=== PATIENT | female | born 1940 | race Caucasian/White ===

== ENCOUNTER 2020-08-17 13:06 | Inpatient (IN) | payer OTHER, BC ==
[2020-08-17 16:14] LABS: BASO % 0.5 % (0-2.0); HEMATOCRIT 31.8 % (32.4-45.2); HEMOGLOBIN 10.4 GM/dL (10.7-15.3); LYMPH % 8.5 % (8-40); MCH 28.4 pg (25.7-33.7); MCHC 32.7 g/dl (32.0-36.0); MEAN CELL VOLUME 86.9 fl (80-96); MEAN PLT VOLUME 8.5 fl (7.5-11.1); MONO % 3.8 % (3.8-10.2); NEUT % 87.2 % (42.8-82.8); PLATELET COUNT 299 K/MM3 (134-434); RBC 3.66 M/mm3 (3.60-5.2); RDW 14.5 % (11.6-15.6); WHITE BLOOD COUNT 8.6 K/mm3 (4.0-10.0)
[2020-08-17 16:35] LABS: CHLORIDE 107 mmol/L (98-107); POTASSIUM 4.9 mmol/L (3.5-5.1); SODIUM 139 mmol/L (136-145)
[2020-08-17 16:37] LABS: CALCIUM 9.4 mg/dL (8.5-10.1)
[2020-08-17 16:38] LABS: ALBUMIN 3.4 g/dl (3.4-5.0); ANION GAP 6 MMOL/L (8-16); BLOOD UREA NITROGEN 52.7 mg/dL (7-18); CO2 27 mmol/L (21-32); GLUCOSE,RANDOM 154 mg/dL (74-106)
[2020-08-17 16:41] LABS: CREATININE 1.2 mg/dL (0.55-1.3); SGOT/AST 16 U/L (15-37); SGPT/ALT 24 U/L (13-61)
[2020-08-17 16:42] LABS: BILIRUBIN,TOTAL 0.3 mg/dL (0.2-1); TOT PROT 6.8 g/dl (6.4-8.2)
[2020-08-17 16:43] LABS: ALK PHOS 83 U/L (45-117)
[2020-08-17] MEDS ORDERED: SODIUM CHLORIDE 500 ML IV STA (17:06)
[2020-08-17 19:53] LABS: POTASSIUM 4.3 mmol/L (3.5-5.1)
[2020-08-17 19:54] LABS: CALCIUM 9.1 mg/dL (8.5-10.1)
[2020-08-17 19:55] LABS: BLOOD UREA NITROGEN 52.6 mg/dL (7-18)
[2020-08-17 19:58] LABS: CREATININE 1.3 mg/dL (0.55-1.3)
[2020-08-17 21:01] LABS: EPI CELLS >36 /uL (0-25.1); HYALINE CASTS 2 /uL (0-3.1); URINE APPEARANCE CLEAR; URINE BACTERIA 205 /uL (0-1359); URINE BILIRUBIN NEGATIVE (NEGATIVE); URINE COLOR YELLOW; URINE GLUCOSE (UA) NEGATIVE (NEGATIVE); URINE KETONE NEGATIVE (NEGATIVE); URINE LEUK ESTERASE 1+ (NEGATIVE); URINE NITRITE NEGATIVE (NEGATIVE); URINE PROTEIN 2+ (NEGATIVE); URINE RBC 13 /uL (0-23.9); URINE UROBILINOGEN 0.2 mg/dL (0.2-1.0); URINE WBC 44 /uL (0-25.8)
[2020-08-17] MEDS ORDERED: SODIUM CHLORIDE 1,000 ML IV SCH (22:00)
[2020-08-17] MEDS ORDERED: ATORVASTATIN CA 20 MG TABLET (FP) ONE (22:45)
[2020-08-17] MEDS ORDERED: HEPARIN NA (PORCINE) 5,000 UNITS/ML 1ML VIAL ONE (22:45)
[2020-08-17] MEDS: ATORVASTATIN CA 20 MG TABLET (FP) PO SCH (23:02)
[2020-08-17] MEDS: HEPARIN NA (PORCINE) 5,000 UNITS/ML 1ML VIAL SQ SCH (23:02)
[2020-08-18] MEDS ORDERED: MELATONIN 5 MG TABLETS PO ONE (00:25)
[2020-08-18 00:29] VITALS: BMI 34.6
[2020-08-18 07:38] LABS: HEMATOCRIT 24.5 % (32.4-45.2); HEMOGLOBIN 8.3 GM/dL (10.7-15.3); MCH 29.3 pg (25.7-33.7); MCHC 33.7 g/dl (32.0-36.0); MEAN PLT VOLUME 8.2 fl (7.5-11.1); PLATELET COUNT 222 K/MM3 (134-434); RBC 2.82 M/mm3 (3.60-5.2); RDW 14.7 % (11.6-15.6); WHITE BLOOD COUNT 7.5 K/mm3 (4.0-10.0)
[2020-08-18 07:45] LABS: POTASSIUM 3.7 mmol/L (3.5-5.1)
[2020-08-18 08:19] LABS: ALBUMIN 2.8 g/dl (3.4-5.0); BILIRUBIN,TOTAL 0.3 mg/dL (0.2-1); BLOOD UREA NITROGEN 40.2 mg/dL (7-18); CALCIUM 8.5 mg/dL (8.5-10.1); MAGNESIUM 1.9 mg/dL (1.8-2.4); TOT PROT 5.4 g/dl (6.4-8.2)
[2020-08-18] MEDS ORDERED: ASPIRIN COATED 81 MG TABLET.EC PO SCH (10:00)
[2020-08-18] MEDS ORDERED: METOPROLOL TARTRATE 25 MG TABLET (FP) PO SCH (10:00)
[2020-08-18] MEDS ORDERED: VALSARTAN 80 MG TABLET PO SCH (10:00)
[2020-08-18] MEDS ORDERED: PANTOPRAZOLE SODIUM 40 MG VIAL IVPUSH SCH (10:00)
[2020-08-18] MEDS: MULTIVITAMINS (DAILY MVI) TABLET (FP) PO SCH (10:21)
[2020-08-18] MEDS: METOPROLOL TARTRATE 25 MG TABLET (FP) PO SCH (10:21)
[2020-08-18] MEDS: HEPARIN NA (PORCINE) 5,000 UNITS/ML 1ML VIAL SQ SCH (10:21)
[2020-08-18] MEDS: FOLIC ACID 1 MG TABLET (FP) PO SCH (10:21)
[2020-08-18] MEDS: SODIUM CHLORIDE 0.45%/POT 20 MEQ/1,000 ML INFUS.BAG IV SCH ×2 (10:29→23:45)
[2020-08-18 13:19] LABS: HEMATOCRIT 27.6 % (32.4-45.2); MCH 28.5 pg (25.7-33.7); MCHC 32.7 g/dl (32.0-36.0); MEAN PLT VOLUME 8.4 fl (7.5-11.1); PLATELET COUNT 248 K/MM3 (134-434); RBC 3.17 M/mm3 (3.60-5.2); RDW 14.3 % (11.6-15.6); WHITE BLOOD COUNT 7.9 K/mm3 (4.0-10.0)
[2020-08-18] MEDS: PANTOPRAZOLE SODIUM 80 MG in SODIUM CHLORIDE 100 ML IVPB SCH ×2 (13:48→23:30)
[2020-08-18] MEDS: ATORVASTATIN CA 20 MG TABLET (FP) PO SCH (21:38)
[2020-08-19 07:56] LABS: BASO % 0.8 % (0-2.0); EOS % 4.3 % (0-4.5); HEMATOCRIT 24.2 % (32.4-45.2); HEMOGLOBIN 7.9 GM/dL (10.7-15.3); LYMPH % 23.3 % (8-40); MCH 28.5 pg (25.7-33.7); MCHC 32.8 g/dl (32.0-36.0); MEAN PLT VOLUME 8.2 fl (7.5-11.1); MONO % 6.8 % (3.8-10.2); NEUT % 64.8 % (42.8-82.8); PLATELET COUNT 221 K/MM3 (134-434); RBC 2.78 M/mm3 (3.60-5.2); RDW 14.5 % (11.6-15.6); WHITE BLOOD COUNT 5.9 K/mm3 (4.0-10.0)
[2020-08-19] MEDS: PANTOPRAZOLE SODIUM 80 MG in SODIUM CHLORIDE 100 ML IVPB SCH ×3 (08:30→21:27)
[2020-08-19 08:36] LABS: CALCIUM 8.5 mg/dL (8.5-10.1)
[2020-08-19 08:37] LABS: BLOOD UREA NITROGEN 15.9 mg/dL (7-18)
[2020-08-19 08:40] LABS: CREATININE 0.8 mg/dL (0.55-1.3)
[2020-08-19 09:11] LABS: PROTHROMBIN TIME (PATIENT) 12.1 SEC (9.7-13.0)
[2020-08-19] MEDS: SODIUM CHLORIDE 0.45%/POT 20 MEQ/1,000 ML INFUS.BAG IV SCH (09:45)
[2020-08-19] MEDS: METOPROLOL TARTRATE 25 MG TABLET (FP) PO SCH (10:09)
[2020-08-19] MEDS: MULTIVITAMINS (DAILY MVI) TABLET (FP) PO SCH (10:09)
[2020-08-19] MEDS: FOLIC ACID 1 MG TABLET (FP) PO SCH (10:09)
[2020-08-19] MEDS: ATORVASTATIN CA 20 MG TABLET (FP) PO SCH (21:26)
[2020-08-20] MEDS: PANTOPRAZOLE SODIUM 80 MG in SODIUM CHLORIDE 100 ML IVPB SCH ×2 (05:55→14:18)
[2020-08-20 07:26] LABS: EOS % 4.5 % (0-4.5); HEMATOCRIT 23.5 % (32.4-45.2); LYMPH % 20.6 % (8-40); MCH 29.4 pg (25.7-33.7); MCHC 34.2 g/dl (32.0-36.0); MEAN CELL VOLUME 85.9 fl (80-96); MEAN PLT VOLUME 8.1 fl (7.5-11.1); MONO % 7.8 % (3.8-10.2); NEUT % 66.1 % (42.8-82.8); PLATELET COUNT 220 K/MM3 (134-434); RBC 2.73 M/mm3 (3.60-5.2); RDW 14.2 % (11.6-15.6); WHITE BLOOD COUNT 6.2 K/mm3 (4.0-10.0)
[2020-08-20 07:56] LABS: POTASSIUM 3.8 mmol/L (3.5-5.1)
[2020-08-20 08:01] LABS: IRON SERUM 31 ug/dL (50-175); TOTAL IRON BINDING CAPACITY 247 ug/dL (250-450)
[2020-08-20 08:07] LABS: BLOOD UREA NITROGEN 10.4 mg/dL (7-18); CALCIUM 8.6 mg/dL (8.5-10.1)
[2020-08-20 08:09] LABS: CREATININE 0.9 mg/dL (0.55-1.3)
[2020-08-20] MEDS: METOPROLOL TARTRATE 25 MG TABLET (FP) PO SCH (09:23)
[2020-08-20] MEDS: MULTIVITAMINS (DAILY MVI) TABLET (FP) PO SCH (09:23)
[2020-08-20] MEDS: FOLIC ACID 1 MG TABLET (FP) PO SCH (09:23)
[2020-08-20] MEDS: SODIUM CHLORIDE 0.45%/POT 20 MEQ/1,000 ML INFUS.BAG IV SCH (09:45)
[2020-08-20] MEDS ORDERED: FERRIC CARBOXYMALTOSE 750 MG in SODIUM CHLORIDE 250 ML IVPB ONE (10:00)
[2020-08-20] MEDS: ATORVASTATIN CA 20 MG TABLET (FP) PO SCH (22:27)
[2020-08-21] MEDS: PANTOPRAZOLE SODIUM 80 MG in SODIUM CHLORIDE 100 ML IVPB SCH ×2 (05:31→13:09)
[2020-08-21 08:46] LABS: BASO % 0.8 % (0-2.0); EOS % 3.4 % (0-4.5); HEMATOCRIT 26.4 % (32.4-45.2); HEMOGLOBIN 8.9 GM/dL (10.7-15.3); LYMPH % 16.9 % (8-40); MCH 29.4 pg (25.7-33.7); MCHC 33.8 g/dl (32.0-36.0); MEAN CELL VOLUME 86.9 fl (80-96); MONO % 7.2 % (3.8-10.2); NEUT % 71.7 % (42.8-82.8); PLATELET COUNT 247 K/MM3 (134-434); RBC 3.04 M/mm3 (3.60-5.2); RDW 14.4 % (11.6-15.6); WHITE BLOOD COUNT 7.2 K/mm3 (4.0-10.0)
[2020-08-21 08:56] LABS: POTASSIUM 3.7 mmol/L (3.5-5.1)
[2020-08-21 09:02] LABS: BLOOD UREA NITROGEN 7.2 mg/dL (7-18); CALCIUM 8.7 mg/dL (8.5-10.1); MAGNESIUM 1.8 mg/dL (1.8-2.4)
[2020-08-21 09:06] LABS: CREATININE 0.9 mg/dL (0.55-1.3)
[2020-08-21] MEDS ORDERED: MAG HYDROX/AL HYDROX/SIMETH 30 ML UNIT-DOSE CUP PO SCH (12:00)
[2020-08-21] MEDS: MULTIVITAMINS (DAILY MVI) TABLET (FP) PO SCH (13:02)
[2020-08-21] MEDS: METOPROLOL TARTRATE 25 MG TABLET (FP) PO SCH (13:02)
[2020-08-21] MEDS: FOLIC ACID 1 MG TABLET (FP) PO SCH (13:02)
[2020-08-21] MEDS: SODIUM CHLORIDE 0.45%/POT 20 MEQ/1,000 ML INFUS.BAG IV SCH (13:09)
[2020-08-21 14:39] VITALS: BP 146/86; PULSE 104; TEMP 97.6
[2020-08-21] MEDS ORDERED: PANTOPRAZOLE 40 MG TABLET PO SCH (22:00)
== END 2020-08-21 17:51 | disposition home or self-care (01) | DRG 379 ==
LOC: JER 13:06 → JERBED 21:57 → J4W 23:52
PROVIDERS: ADMIT Internal Medicine; ATTEND Family Medicine
PROC: 0DB78ZX Excision of Stomach, Pylorus, Via Natural or Artificial Opening Endoscopic, Diagnostic (ICD-10-PCS; 2020-08-21)
PROC: 0DB98ZX Excision of Duodenum, Via Natural or Artificial Opening Endoscopic, Diagnostic (ICD-10-PCS; principal; 2020-08-21 11:00)
DX: K25.4 Chronic or unspecified gastric ulcer with hemorrhage (principal); I10 Essential (primary) hypertension; E78.5 Hyperlipidemia, unspecified; I49.8 Other specified cardiac arrhythmias; D64.9 Anemia, unspecified; R42 Dizziness and giddiness; R00.0 Tachycardia, unspecified; I48.0 Paroxysmal atrial fibrillation; I25.10 Atherosclerotic heart disease of native coronary artery without angina pectoris; E78.00 Pure hypercholesterolemia, unspecified; H35.30 Unspecified macular degeneration; K44.9 Diaphragmatic hernia without obstruction or gangrene; K29.70 Gastritis, unspecified, without bleeding
CPT/HCPCS: 36415; 71046-TC-FY; 80048; 80053; 81003; 82550; 82728; 83540; 83550; 83735; 84439; 84443; 84484; 85025; 85027; 85610; 87804; 88305-TC; 93005; 93010; 97116-GP; 97161-GP; 99285-25; C9803; J1439; J1644; J3480; U0003

== ENCOUNTER 2020-11-27 04:35 | Day surgery (SDC) | payer OTHER, BC ==
[2020-11-22 15:35] VITALS: BMI 33.6
[2020-11-27 08:40] VITALS: TEMP 96.8
[2020-11-27 09:17] VITALS: BP 127/65; PULSE 68
== END 2020-11-27 10:01 | disposition home or self-care (01) ==
LOC: JASU-ENDO 04:35
PROVIDERS: ATTEND Internal Medicine Gastroenterology
PROC: 0DB78ZX Excision of Stomach, Pylorus, Via Natural or Artificial Opening Endoscopic, Diagnostic (ICD-10-PCS; 2020-11-27)
PROC: 0DB98ZX Excision of Duodenum, Via Natural or Artificial Opening Endoscopic, Diagnostic (ICD-10-PCS; principal; 2020-11-27 08:00)
DX: Z87.11 Personal history of peptic ulcer disease (principal); K29.01 Acute gastritis with bleeding; K21.9 Gastro-esophageal reflux disease without esophagitis; K44.9 Diaphragmatic hernia without obstruction or gangrene
CPT/HCPCS: 88305-TC; 88342-TC

== ENCOUNTER 2022-07-21 17:04 | Emergency (ER) | payer OTHER, BC ==
[2022-07-21 17:13] VITALS: BMI 33.3
[2022-07-21] MEDS ORDERED: VALSARTAN 40 MG TABLET PO ONE (19:47)
[2022-07-21 21:16] VITALS: RESP 18; TEMP 98.3
[2022-07-21 21:52] VITALS: BP 169/81; PULSE 85
== END 2022-07-21 21:21 | disposition home or self-care (01) ==
LOC: JER 17:04
DX: I10 Essential (primary) hypertension (principal)
CPT/HCPCS: 36415; 84439; 84443; 84479; 93005; 93010; 99284-25

== ENCOUNTER 2023-10-07 11:18 | Inpatient (IN) | payer OTHER, BC ==
[2023-10-07] MEDS ORDERED: LIDOCAINE 4% PATCH TP ONE (12:18)
[2023-10-07] MEDS ORDERED: morphine SULFATE 4 MG/ML VIAL ONE (12:18)
[2023-10-07] MEDS: morphine CARPU-JECT 4 MG/1 ML DISP.SYRIN IVPUSH ONE (12:58)
[2023-10-07 13:05] LABS: BASO % 0.6 % (0-2.0); EOS % 1.4 % (0-4.5); HEMATOCRIT 36.4 % (32.4-45.2); HEMOGLOBIN 11.9 GM/dL (10.7-15.3); MCH 28.1 pg (25.7-33.7); MCHC 32.8 g/dl (32.0-36.0); MEAN CELL VOLUME 85.6 fl (80-96); MEAN PLT VOLUME 7.5 fl (7.5-11.1); MONO % 6.7 % (3.8-10.2); NEUT % 80.3 % (42.8-82.8); PLATELET COUNT 293 10^3/uL (134-434); RBC 4.25 M/mm3 (3.60-5.2); RDW 14.5 % (11.6-15.6); WHITE BLOOD COUNT 8.6 K/mm3 (4.0-10.0)
[2023-10-07 13:28] LABS: POTASSIUM 5.2 mmol/L (3.5-5.1)
[2023-10-07 13:30] LABS: CALCIUM 9.9 mg/dL (8.5-10.1)
[2023-10-07 13:31] LABS: ALBUMIN 3.7 g/dl (3.4-5.0); BLOOD UREA NITROGEN 20.5 mg/dL (7-18)
[2023-10-07 13:34] LABS: CREATININE 1.1 mg/dL (0.55-1.3)
[2023-10-07 13:35] LABS: BILIRUBIN,TOTAL 0.4 mg/dL (0.2-1); TOT PROT 6.9 g/dl (6.4-8.2)
[2023-10-07] MEDS: LIDOCAINE 5% TOPICAL PATCH TP ONE (14:00)
[2023-10-07] MEDS: predniSONE 20 MG TABLET (UD) PO ONE (14:00)
[2023-10-07] MEDS: GABAPENTIN 100 MG CAPSULE PO ONE (14:00)
[2023-10-07] MEDS ORDERED: predniSONE 10 MG TABLET (UD) ONE (14:16)
[2023-10-07] MEDS ORDERED: predniSONE 20 MG TABLET (UD) ONE (14:16)
[2023-10-07] MEDS ORDERED: GABAPENTIN 100 MG CAPSULE ONE (14:16)
[2023-10-07] MEDS ORDERED: ACETAMINOPHEN 1000 MG/100 ML BAG IVPB PRN (17:26)
[2023-10-07 18:11] VITALS: RESP 18
[2023-10-07] MEDS: traMADol HCL 50 MG TABLET PO PRN (18:14)
[2023-10-07] MEDS ORDERED: traMADol HCL 50 MG TABLET ONE (18:15)
[2023-10-07 20:32] VITALS: BMI 33.7
[2023-10-07] MEDS: HEPARIN NA (PORCINE) 5,000 UNITS/ML 1ML VIAL SQ SCH (21:22)
[2023-10-07] MEDS: METOPROLOL TARTRATE 25 MG TABLET (FP) PO SCH (21:23)
[2023-10-07] MEDS: LIDOCAINE PATCH REMOVAL MC SCH (21:23)
[2023-10-07] MEDS: ATORVASTATIN CA 20 MG TABLET (FP) PO SCH (21:23)
[2023-10-08 09:05] LABS: BASO % 0.3 % (0-2.0); EOS % 0.8 % (0-4.5); HEMATOCRIT 34.8 % (32.4-45.2); HEMOGLOBIN 11.6 GM/dL (10.7-15.3); LYMPH % 15.4 % (8-40); MCH 28.4 pg (25.7-33.7); MCHC 33.3 g/dl (32.0-36.0); MEAN CELL VOLUME 85.3 fl (80-96); MEAN PLT VOLUME 7.5 fl (7.5-11.1); MONO % 4.6 % (3.8-10.2); NEUT % 78.9 % (42.8-82.8); PLATELET COUNT 301 10^3/uL (134-434); RBC 4.07 M/mm3 (3.60-5.2); RDW 14.5 % (11.6-15.6); WHITE BLOOD COUNT 8.3 K/mm3 (4.0-10.0)
[2023-10-08 09:25] LABS: POTASSIUM 4.3 mmol/L (3.5-5.1)
[2023-10-08] MEDS: VALSARTAN 80 MG TABLET PO SCH (09:26)
[2023-10-08] MEDS: PANTOPRAZOLE 40 MG TABLET PO SCH (09:26)
[2023-10-08 09:33] LABS: ALBUMIN 3.4 g/dl (3.4-5.0)
[2023-10-08 09:34] LABS: CALCIUM 9.6 mg/dL (8.5-10.1)
[2023-10-08 09:35] LABS: BLOOD UREA NITROGEN 22.3 mg/dL (7-18); MAGNESIUM 1.9 mg/dL (1.8-2.4)
[2023-10-08 09:37] LABS: CREATININE 1.4 mg/dL (0.55-1.3)
[2023-10-08 09:39] LABS: BILIRUBIN,TOTAL 0.5 mg/dL (0.2-1); TOT PROT 6.5 g/dl (6.4-8.2)
[2023-10-09 12:21] VITALS: BP 135/67; PULSE 85; TEMP 97.8
== END 2023-10-09 12:42 | disposition home or self-care (01) | DRG 558 ==
LOC: JER 11:18 → JERBED 17:12 → OBSVTOIN 17:24 → J6S 19:14
PROVIDERS: ADMIT Internal Medicine; ATTEND Internal Medicine
DX: M75.52 Bursitis of left shoulder (principal); I48.0 Paroxysmal atrial fibrillation; I10 Essential (primary) hypertension; E78.5 Hyperlipidemia, unspecified; M54.2 Cervicalgia; H35.30 Unspecified macular degeneration; M24.812 Other specific joint derangements of left shoulder, not elsewhere classified; K57.90 Diverticulosis of intestine, part unspecified, without perforation or abscess without bleeding; M79.602 Pain in left arm; S46.812A Strain of other muscles, fascia and tendons at shoulder and upper arm level, left arm, initial encounter; X58.XXXA Exposure to other specified factors, initial encounter; Y92.098 Other place in other non-institutional residence as the place of occurrence of the external cause; Y99.9 Unspecified external cause status
CPT/HCPCS: 36415; 70450-TC; 72125-TC; 73030-TC-LT-FY; 80053; 83735; 84443; 84484; 85025; 93005; 93010; 97116-GP; 97162-GP; 99285-25; G0378; J1644

== ENCOUNTER 2024-03-31 04:15 | Day surgery (SDC) | payer OTHER, BC ==
[2024-03-29 16:23] VITALS: BMI 32.8
[~2024-03-31 04:15] MED LIST: ACETAMINOPHEN 325 MG TABLET (FP) PO PRN
[2024-03-31] MEDS ORDERED: EPINEPHrine/PF 1 MG/1 ML (1:1,000) AMPULE ONE (07:15)
[2024-03-31] MEDS ORDERED: BSS (NA/CA/MG/K) BALANCED SALT SOLUTION OPHTH SOLN 15 ML BOTTLE ONE (07:16)
[2024-03-31] MEDS ORDERED: LIDOCAINE HCL/PF 1% SDV 5ML VIAL ONE (07:16)
[2024-03-31] MEDS ORDERED: POVIDONE-IODINE 5% OPHTHALMIC PREP 30 ML SOLUTION ONE (07:16)
[2024-03-31] MEDS ORDERED: OFLOXACIN 0.3% OPHTHALMIC SOLUTION 5 ML BOTTLE ONE (07:39)
[2024-03-31] MEDS ORDERED: CYCLOPENTOLATE HCL 1% OPHTH SOLN 2 ML BOTTLE ONE (07:39)
[2024-03-31] MEDS ORDERED: TROPICAMIDE 1% OPHTH SOLN 15 ML BOTTLE ONE (07:39)
[2024-03-31] MEDS ORDERED: PHENYLEPHRINE 2.5% OPTHALMIC DROP 2ML BOTTLE ONE (07:39)
[2024-03-31] MEDS ORDERED: KETOROLAC TROMETHAMINE 0.5% EYE DROP 1 DROP DROPS ONE (07:39)
[2024-03-31] MEDS: CYCLOPENTOLATE HCL 1% OPHTH SOLN 2 ML BOTTLE OP SCH (07:53)
[2024-03-31] MEDS: KETOROLAC TROMETHAMINE 0.5% EYE DROP 1 DROP DROPS OP SCH (07:54)
[2024-03-31] MEDS: TROPICAMIDE 1% OPHTH SOLN 15 ML BOTTLE OP SCH (07:54)
[2024-03-31] MEDS: PHENYLEPHRINE 2.5% OPHTH SOLN 15 ML BOTTLE OP SCH (07:54)
[2024-03-31] MEDS: OFLOXACIN 0.3% OPHTHALMIC SOLUTION 5 ML BOTTLE OP SCH (07:55)
[2024-03-31 08:09] VITALS: PULSE 80; RESP 16; TEMP 97.8
[2024-03-31] MEDS: TETRACAINE 0.5% OPHTH SOLN 2 ML BOTTLE OD ONE ×2 (08:59→10:00)
[2024-03-31] MEDS: POVIDONE-IODINE 5% OPHTHALMIC PREP 30 ML SOLUTION OD ONE ×2 (09:00→10:04)
[2024-03-31] MEDS: LIDOCAINE HCL 1% PRESERVATIVE FREE - 30ML VIAL IJ ONE ×2 (09:00→10:06)
[2024-03-31] MEDS: BSS (NA/CA/MG/K) BALANCED SALT SOLUTION OPHTH SOLN 15 ML BOTTLE OD ONE ×2 (09:21→10:08)
[2024-03-31] MEDS: CHONDROITIN SU A/HYALUR SOD 1 KIT IO ONE (09:22)
[2024-03-31] MEDS: EPINEPHrine 1:1,000 1,000 MCG/ML ML SQ ONE ×2 (09:45→10:00)
[2024-03-31] MEDS: VANCOMYCIN 1 GM in D5W (PRE-DOCKED) 1,000 MG/250 ML (RESTRICTED TO ID ONLY IVPB ONE ×2 (09:46→10:30)
[2024-03-31] MEDS ORDERED: MIDAZOLAM HCL 2 MG/2 ML SINGLE DOSE VIAL ONE (10:01)
[2024-03-31] MEDS: LIDOCAINE HCL 1% PRESERVATIVE FREE - 30ML VIAL IO ONE (10:06)
[2024-03-31 11:04] VITALS: BP 127/62
== END 2024-03-31 11:40 | disposition home or self-care (01) ==
LOC: JASU-SURG 04:15
PROVIDERS: ATTEND Ophthalmology
PROC: 08RJ3JZ Replacement of Right Lens with Synthetic Substitute, Percutaneous Approach (ICD-10-PCS; principal; 2024-03-31 10:00)
DX: H26.9 Unspecified cataract (principal)
CPT/HCPCS: 66984; V2632

== ENCOUNTER 2024-04-14 04:37 | Day surgery (SDC) | payer OTHER, BC ==
[2024-04-09 15:47] VITALS: BMI 32.8
[2024-04-14] MEDS: EPINEPHrine 1:1,000 - 30 MG/30 ML VIAL SQ ONE
[2024-04-14] MEDS ORDERED: EPINEPHrine/PF 1 MG/1 ML (1:1,000) AMPULE ONE (07:30)
[2024-04-14] MEDS ORDERED: LIDOCAINE HCL/PF 2% SDV 5ML VIAL ONE (07:30)
[2024-04-14] MEDS ORDERED: BSS (NA/CA/MG/K) BALANCED SALT SOLUTION OPHTH SOLN 15 ML BOTTLE ONE (07:31)
[2024-04-14] MEDS ORDERED: TETRACAINE 0.5% OPHTH SOLN 2 ML BOTTLE ONE (07:31)
[2024-04-14] MEDS ORDERED: POVIDONE-IODINE 5% OPHTHALMIC PREP 30 ML SOLUTION ONE (07:31)
[2024-04-14] MEDS ORDERED: CYCLOPENTOLATE HCL 1% OPHTH SOLN 2 ML BOTTLE ONE (07:38)
[2024-04-14] MEDS ORDERED: TROPICAMIDE 1% OPHTH SOLN 15 ML BOTTLE ONE (07:38)
[2024-04-14] MEDS ORDERED: OFLOXACIN 0.3% OPHTHALMIC SOLUTION 5 ML BOTTLE ONE (07:38)
[2024-04-14] MEDS ORDERED: KETOROLAC TROMETHAMINE 0.5% EYE DROP 1 DROP DROPS ONE (07:38)
[2024-04-14] MEDS ORDERED: PHENYLEPHRINE 2.5% OPTHALMIC DROP 2ML BOTTLE ONE (07:38)
[2024-04-14 07:53] VITALS: RESP 20
[2024-04-14] MEDS: OFLOXACIN 0.3% OPHTHALMIC SOLUTION 5 ML BOTTLE OP SCH (08:19)
[2024-04-14] MEDS: CYCLOPENTOLATE HCL 1% OPHTH SOLN 2 ML BOTTLE OP SCH (08:19)
[2024-04-14] MEDS: TROPICAMIDE 1% OPHTH SOLN 15 ML BOTTLE OP SCH (08:19)
[2024-04-14] MEDS: KETOROLAC TROMETHAMINE 0.5% EYE DROP 1 DROP DROPS OP SCH (08:19)
[2024-04-14] MEDS: PHENYLEPHRINE 2.5% OPHTH SOLN 15 ML BOTTLE OP SCH (08:19)
[2024-04-14] MEDS ORDERED: MIDAZOLAM HCL 2 MG/2 ML SINGLE DOSE VIAL ONE (09:34)
[2024-04-14] MEDS: TETRACAINE 0.5% OPHTH SOLN 2 ML BOTTLE OS ONE ×2 (10:16)
[2024-04-14] MEDS: POVIDONE-IODINE 5% OPHTHALMIC PREP 30 ML SOLUTION OS ONE ×2 (10:17)
[2024-04-14] MEDS: LIDOCAINE HCL 1% PRESERVATIVE FREE - 30ML VIAL INF ONE ×2 (10:24)
[2024-04-14] MEDS: BSS (NA/CA/MG/K) BALANCED SALT SOLUTION OPHTH SOLN 15 ML BOTTLE IO ONE ×2 (10:28)
[2024-04-14] MEDS: CHONDROITIN SU A/HYALUR SOD 1 KIT IO ONE ×3 (10:30)
[2024-04-14] MEDS: ACETYLCHOLINE 1:100 INTRA-OCUL 20 MG/2 ML KIT IJ ONE (10:35)
[2024-04-14] MEDS: EPINEPHrine 1:1,000 1,000 MCG/ML ML SQ ONE (10:38)
[2024-04-14 12:09] VITALS: BP 119/57; PULSE 92; TEMP 97.3
== END 2024-04-14 12:30 | disposition home or self-care (01) ==
LOC: JASU-SURG 04:37
PROVIDERS: ATTEND Ophthalmology
PROC: 08RK3JZ Replacement of Left Lens with Synthetic Substitute, Percutaneous Approach (ICD-10-PCS; principal; 2024-04-14 10:00)
DX: H26.9 Unspecified cataract (principal)
CPT/HCPCS: 66984; V2632

== ENCOUNTER 2025-02-13 23:36 | Emergency (ER) | payer OTHER, BC ==
[2025-02-13 23:41] VITALS: TEMP 98.1; BMI 32.4
[2025-02-14 00:12] VITALS: BP 185/76; PULSE 85; RESP 16
[2025-02-14 00:59] LABS: ABSOLUTE IMMATURE GRANULOCYTES 0.01 x10^3/uL (0.0-0.031); BASOPHILS # 0.05 x10^3/uL (0.01-0.08); EOSINOPHIL % 3.4 % (0.7-5.8); EOSINOPHILS # 0.25 x10^3/uL (0.04-0.36); MCHC 32.9 g/dl (32.2-35.5); MEAN CELL VOLUME 91.1 fl (79.4-94.8); MEAN PLT VOLUME 9.1 fl (9.4-12.3); MONOCYTE # 0.66 x10^3/uL (0.24-0.86); MONOCYTE % 9.0 % (4.7-12.5); RDW 13.1 % (12.5-17.0)
[2025-02-14 01:43] LABS: TOT PROT 7.4 g/dl (6.4-8.2)
[2025-02-14 01:44] LABS: CO2 25.0 mmol/L (21-32)
[2025-02-14 01:45] LABS: ALK PHOS 143.0 U/L (40-150)
[2025-02-14 01:48] LABS: CREATININE 1.2 mg/dL (0.55-1.3); SGOT/AST 23.0 U/L (5-34); SGPT/ALT 21.0 U/L (0-55)
[2025-02-14 01:58] LABS: GLUCOSE,RANDOM 116.0 mg/dL (74-106)
[2025-02-14 02:09] LABS: HCV DIAGNOSTIC IN-HOUSE W/RFLX NON-REACTIVE (NONREACTIVE); HIV INTERPRETATION NEGATIVE (NEGATIVE)
== END 2025-02-14 02:18 | disposition home or self-care (01) ==
LOC: JER 23:36
DX: I10 Essential (primary) hypertension (principal)
CPT/HCPCS: 36415; 80053; 84443; 84484; 85025; 86803; 87389; 93005; 93010; 99284-25